=== PATIENT | female | born 1935 | race Two or more races ===

== ENCOUNTER 2021-03-30 09:07 | Emergency (ER) | payer MEDICARE, MEDICAID ==
[~2021-03-30] VITALS: Ht 154.9 cm; Wt 81.6 kg
[2021-03-30 10:08] LABS: Urine Bacteria MANY /hpf (None Seen); Urine Blood Negative /uL (Negative); Urine Mucus MANY (None Seen); Urine WBC 18 /hpf (0 - 5)
[2021-03-30 10:28] LABS: Basophils # (auto) 0.1 10 ^3/uL (0-0.2); Eosinophils # (auto) 0.4 10 ^3/uL (0-0.8); Hemoglobin 12.8 g/dL (12.2-16.2); Lymphocytes # (auto) 2.4 10 ^3/uL (0.4-5.4); Red Cell Distribution Width 18.8 % (11.8-14.3)
[2021-03-30 10:30] LABS: Basophils % (auto) 1.6 % (0.0-2.0); Eosinophils % (auto) 5.9 % (0.0-7.0); Hematocrit 38.9 % (36.0-46.0); Lymphocytes % (auto) 35.1 % (10.0-50.0); Mean Corpuscular Hemoglobin 24.6 pg (28.0-32.0); Mean Corpuscular Volume 74.4 fL (80.0-100.0); Monocytes # (auto) 0.6 10 ^3/uL (0-1.3); Monocytes % (auto) 8.4 % (0.0-12.0); Neutrophils # (auto) 3.4 10 ^3/uL (1.6-8.6); Platelet Count (auto) 282 10^3/uL (140-450); Red Blood Cells 5.22 10^6/uL (4.0-5.20); White Blood Cell 6.9 10^3/uL (4.4-10.8)
[2021-03-30 10:52] LABS: Albumin 3.2 g/dL (3.4-5.0); Anion Gap 8 (5-15); Blood Urea Nitrogen 18 mg/dL (7-18); Calcium 9.8 mg/dL (8.5-10.1); Carbon Dioxide 22 mmol/L (21-32); Chloride 107 mmol/L (98-107); Glucose 147 mg/dL (74-106); Sodium 137 mmol/L (136-145)
[2021-03-30 10:58] LABS: Alanine Aminotransferase 26 U/L (13-56); Alkaline Phosphatase 63 U/L (45-117); Aspartate Aminotransferase 25 U/L (15-37); Bilirubin, Total 0.2 mg/dL (0.2-1.0); GFR African American 67 mL/min; GFR Non-African American 56 mL/min; Total Protein 7.1 g/dL (6.4-8.2)
[2021-03-30] MEDS ORDERED: cefTRIAXone 1GM/50ML D5W 0 ML IV ONE (12:28)
[2021-03-30] MEDS ORDERED: ACETAMINOPHEN 500 MG TAB PO ONE (12:45)
[2021-03-30] MEDS ORDERED: oxyCODONE ER 10 MG TAB PO ONE (13:00)
[2021-03-30 13:55] VITALS: BP 158/98
== END 2021-03-30 15:20 | disposition home or self-care (01) ==
LOC: EDBD 09:07 → ER 09:07
DX: S00.83XA Contusion of other part of head, initial encounter (principal); Z90.49 Acquired absence of other specified parts of digestive tract; Z90.710 Acquired absence of both cervix and uterus; Z88.5 Allergy status to narcotic agent; W01.0XXA Fall on same level from slipping, tripping and stumbling without subsequent striking against object, initial encounter; Y93.89 Activity, other specified; Y92.89 Other specified places as the place of occurrence of the external cause; Y99.8 Other external cause status
CPT/HCPCS: 36415; 70160; 70450; 70486; 71045; 72192; 80053; 81001; 83880; 84484; 85025; 85049; J0696